=== PATIENT | male | born 2000 | race Caucasian/White ===

== ENCOUNTER → 2022-01-11 | Outpatient (CLI) | payer OTHER ==
--- NOTE | 2022-01-11 15:06 | XR ---
EXAMINATION TYPE: XR chest 2V DATE OF EXAM: 01/11/2022 COMPARISON: NONE HISTORY: Lack of expected normal physiologic development. TECHNIQUE: Frontal and lateral views of the chest are obtained. FINDINGS: There is no focal air space opacity, pleural effusion, or pneumothorax seen. The cardiac silhouette size is within normal limits. The osseous structures are intact. IMPRESSION: No acute cardiopulmonary process.
== END | disposition home or self-care (01) ==
LOC: RADXRMAIN 14:50
PROVIDERS: ATTEND Internal Medicine
DX: R62.50 Unspecified lack of expected normal physiological development in childhood (principal)
CPT/HCPCS: 71046

== ENCOUNTER 2022-10-11 07:53 | Day surgery (SDC) | payer OTHER ==
[2022-10-04 09:04] VITALS: BMI 24.3
[~2022-10-11 07:53] MED LIST: SODIUM CHLORIDE 0.9% 1,000 ML IV SCH
[2022-10-11] MEDS ORDERED: SODIUM CHLORIDE 0.9% 500 ML 500 ML IV ONE (08:28)
[2022-10-11 08:42] VITALS: BP 129/75; PULSE 73; RESP 16; TEMP 98.9
--- NOTE | 2022-10-12 18:49 | P.EPPROC ---
- EP Procedure Note Electrophysiology Procedure Note: Diagnosis Recurrent presyncope Twelve-lead EKG shows sinus rhythm normal OR narrow QRS early repolarization abnormality Tilt table test per protocol Baseline blood pressure 135/76. His mercury Baseline heart is 66 beats a minute Patient was tilted upright at 90 of 70 per protocol Blood pressure remained stable There is an increased heart rate from 6600 beats a minute in the first 10 minutes Thereafter heart rate increased further to 123 beats a minute He complained of shortness of breath, tingling in the hands and fingers and being lightheaded Later he complained of nausea When he is laid supine heart rate came down to 76 beats a minute Impression Orthostatic intolerance Normal twelve-lead
== END 2022-10-11 10:27 | disposition home or self-care (01) ==
LOC: CATHEP 07:53
PROVIDERS: ATTEND Internal Medicine Clinical Cardiac Electrophysiology
DX: G90.A Postural orthostatic tachycardia syndrome [POTS] (principal); Z82.49 Family history of ischemic heart disease and other diseases of the circulatory system; Z79.811 Long term (current) use of aromatase inhibitors
CPT/HCPCS: 93660

== ENCOUNTER → 2023-03-21 | Outpatient (CLI) | payer OTHER ==
[2023-03-22 02:36] LABS: Basophils # (A) 0.06 X 10*3/uL (0.00-0.10); Basophils % (A) 0.9 %; Eosinophils # (A) 0.12 X 10*3/uL (0.04-0.35); Eosinophils % (A) 1.8 %; HCT 46.4 % (39.6-50.0); Lymphocytes # (A) 1.93 X 10*3/uL (0.90-5.00); Lymphocytes % (A) 29.1 %; MCH 29.2 pg (27.0-32.0); MCHC 32.3 g/dL (32.0-37.0); MCV 90.4 FL (80.0-97.0); Mean Platelet Volume 10.5 FL (9.5-12.2); Monocytes # (A) 0.47 X 10*3/uL (0.20-1.00); Monocytes % (A) 7.1 %; NRBC Per 100 WBC 0 X 10*3/uL (0.00-0.01); Neutrophils # (A) 4.04 X 10*3/uL (1.80-7.70); Neutrophils % (A) 60.9 %; Platelet Count 258 X 10*3/uL (140-440); RBC 5.13 X 10*6/uL (4.40-5.60); RDW 12.3 % (11.5-14.5); WBC 6.63 X 10*3/uL (4.50-10.00)
[2023-03-22 02:55] LABS: ALT 17 U/L (10-49); AST 20 U/L (14-35); Albumin 4.9 g/dL (3.8-4.9); Albumin/Globulin Ratio 1.63 Ratio (1.60-3.17); Alkaline Phosphatase 126 U/L (41-126); Blood Urea Nitrogen 12.6 mg/dL (9.0-27.0); Calcium 10.3 mg/dL (8.7-10.3); Carbon Dioxide 24.2 mmol/L (21.6-31.8); Chloride 101 mmol/L (96-109); Chol/HDL Ratio 4.32 Ratio; Glucose 92 mg/dL (70-110); LDL Cholesterol,Calculated 117.3 mg/dL (0.0-131.0); Potassium 4.5 mmol/L (3.5-5.5); Sodium 138 mmol/L (135-145); Total Bilirubin 0.5 mg/dL (0.3-1.2); Total Protein 7.9 g/dL (6.2-8.2)
== END | disposition home or self-care (01) ==
LOC: LABWHC1 15:48
PROVIDERS: ATTEND Internal Medicine
DX: Z00.00 Encounter for general adult medical examination without abnormal findings (principal); Z11.59 Encounter for screening for other viral diseases
CPT/HCPCS: 36415; 80053; 80061; 84443; 85025; 86803

== ENCOUNTER → 2023-12-01 | Outpatient (CLI) | payer OTHER ==
--- NOTE | 2023-12-01 17:24 | XR ---
EXAMINATION TYPE: XR chest 2V DATE OF EXAM: 12/01/2023 COMPARISON: 01/11/2022 INDICATION: Cough and congestion TECHNIQUE: Frontal and lateral views of the chest are obtained. FINDINGS: The heart size is normal. The pulmonary vasculature is normal. There is increase opacity at the left base. Correlate for pneumonia. Atelectasis could be considered. . IMPRESSION: 1. Left lower lobe infiltrate. Correlate for pneumonia or possibly atelectasis [facility], Workstation: [email or web address], 12/01/2023 5:22 PM
== END ==
LOC: RADXRMAIN 16:14
PROVIDERS: ATTEND Family Medicine
CPT/HCPCS: 71046

== ENCOUNTER → 2023-12-12 | Outpatient (CLI) | payer OTHER ==
--- NOTE | 2023-12-12 17:07 | XR ---
EXAMINATION TYPE: XR chest 2V DATE OF EXAM: 12/12/2023 COMPARISON: 12/01/2023 HISTORY: 23-year-old male J18.09, R05.8, complaining of pneumonia TECHNIQUE: Frontal and lateral views FINDINGS: Heart normal size. Aorta and pulmonary vasculature within normal limits. Residual opacity remains at the left base but now with a curvilinear appearance. The previous posterior basilar airspace disease has otherwise cleared. No pleural effusion. IMPRESSION: Interval clearing of the previous posterior left basilar pneumonia. Some residual curvilinear density remains here. Some postinfectious scarring, strandy atelectasis, or minimal residual infiltrate are considerations. [facility], , 12/12/2023 5:04 PM
== END | disposition home or self-care (01) ==
LOC: RADXRMAIN 15:39
PROVIDERS: ATTEND Family Medicine
CPT/HCPCS: 71046

== ENCOUNTER → 2024-06-12 | Outpatient (CLI) | payer OTHER ==
--- NOTE | 2024-06-12 16:21 | XR ---
EXAMINATION TYPE: XR abdomen 1V DATE OF EXAM: 06/12/2024 12:49 PM COMPARISON: None CLINICAL INDICATION: Male, 24 years old with history of K59.00 CONSTIPATION, UNSPECIFIED; PHH, pain TECHNIQUE: One radiographic view of the abdomen was obtained. FINDINGS: Moderate stool in the distal sigmoid/rectum o distended up to 8.7 cm wide. No dilated small bowel loops. Lung bases are clear. No suspicious calcifications identified. IMPRESSION: Moderate stool distal sigmoid and rectum distended up to 8.7 cm wide. Nonobstructive bowel gas patter n. [facility], Workstation: [facility], 06/12/2024 4:18 PM
== END | disposition home or self-care (01) ==
LOC: RADXRMAIN 12:28
PROVIDERS: ATTEND Internal Medicine
DX: K59.00 Constipation, unspecified (principal); R14.0 Abdominal distension (gaseous)
CPT/HCPCS: 74018

== ENCOUNTER → 2024-06-12 | Outpatient (CLI) | payer OTHER ==
[2024-06-12 15:07] LABS: Basophils # (A) 0.05 X 10*3/uL (0.00-0.10); Eosinophils # (A) 0.14 X 10*3/uL (0.04-0.35); Eosinophils % (A) 2.8 %; HCT 43.2 % (39.6-50.0); HGB 13.9 g/dL (13.0-17.0); Lymphocytes # (A) 2.42 X 10*3/uL (0.90-5.00); Lymphocytes % (A) 47.9 %; MCHC 32.2 g/dL (32.0-37.0); MCV 96.2 FL (80.0-97.0); Mean Platelet Volume 11.5 FL (9.5-12.2); Monocytes # (A) 0.33 X 10*3/uL (0.20-1.00); Monocytes % (A) 6.5 %; NRBC Per 100 WBC 0 X 10*3/uL (0.00-0.01); Neutrophils % (A) 41.6 %; Platelet Count 231 X 10*3/uL (140-440); RBC 4.49 X 10*6/uL (4.40-5.60); RDW 13.5 % (11.5-14.5); WBC 5.05 X 10*3/uL (4.50-10.00)
[2024-06-12 19:45] LABS: ALT 35 U/L (10-49); AST 25 U/L (14-35); Albumin 4.6 g/dL (3.8-4.9); Albumin/Globulin Ratio 1.59 Ratio (1.60-3.17); Alkaline Phosphatase 130 U/L (41-126); BUN/Creat Ratio 10.44 Ratio (12.00-20.00); Blood Urea Nitrogen 9.4 mg/dL (9.0-27.0); Calcium 9.7 mg/dL (8.7-10.3); Carbon Dioxide 22.9 mmol/L (21.6-31.8); Chloride 102 mmol/L (96-109); Chol/HDL Ratio 5.39 Ratio; Globulin 2.9 g/dL (1.6-3.3); Glucose 93 mg/dL (70-110); LDL Cholesterol,Calculated 138.1 mg/dL (0.0-131.0); Magnesium 2.1 mg/dL (1.5-2.4); Potassium 4.2 mmol/L (3.5-5.5); Sodium 136 mmol/L (135-145); Total Bilirubin 0.5 mg/dL (0.3-1.2); Total Protein 7.5 g/dL (6.2-8.2)
== END | disposition home or self-care (01) ==
LOC: LABWHC1 11:56
PROVIDERS: ATTEND Internal Medicine
DX: F33.9 Major depressive disorder, recurrent, unspecified (principal)
CPT/HCPCS: 36415; 80053; 80061; 83735; 84443; 85025